=== PATIENT | male | born 1995 | race Hispanic/Latino ===

== ENCOUNTER 2023-03-04 09:01 | Emergency (ER) | payer OTHER ==
[~2023-03-04] VITALS: Ht 177.8 cm; Wt 89.2 kg
[2023-03-04] MEDS ORDERED: TETRACAINE 0.5% OPHTH SOLN 4ML OU ONE (10:20)
[2023-03-04] MEDS ORDERED: IRRIGATION OPHTH SOLN (EYE WASH) 120ML OU ONE (11:20)
[2023-03-04 12:01] VITALS: O2SAT 100
[2023-03-04 12:07] VITALS: BP 133/69; TEMP 97.5
== END 2023-03-04 12:39 | disposition home or self-care (01) ==
LOC: M ED 09:01
DX: S80.01XA Contusion of right knee, initial encounter (principal); S39.012A Strain of muscle, fascia and tendon of lower back, initial encounter; H57.9 Unspecified disorder of eye and adnexa; V49.40XA Driver injured in collision with unspecified motor vehicles in traffic accident, initial encounter